=== PATIENT | female | born 1970 | race Caucasian/White ===

== ENCOUNTER 2021-11-11 01:00 | Emergency (ER) | payer OTHER ==
[~2021-11-11] VITALS: Ht 170.2 cm; Wt 65.8 kg
[2021-11-11 01:00] VITALS: BP_SYST 122
--- NOTE | 2021-11-11 01:12 | NUR ---
Patient triaged and placed in waiting room. VSS and patient appears in no acute distress at this time. Accompanied by SELF, awaiting available bed, and MD notified of need for MSE.
--- NOTE | 2021-11-11 02:41 | NUR ---
DR HOBBS OUT TO TRIAGE ROOM TO EVALUATE PT.
[2021-11-11] MEDS ORDERED: IBUP-1971 PO (03:09)
--- NOTE | 2021-11-11 03:29 | NUR ---
Patient given written and verbal discharge instructions and verbalizes understanding. ER MD discussed with patient the results and treatment provided. Patient in stable condition. ID arm band removed. Rx of ibuprofen given. Patient educated on pain management and to follow up with PMD. Opportunity for questions provided and answered. Medication side effect fact sheet provided.
[2021-11-11 03:35] VITALS: BP_SYST 122
== END 2021-11-11 03:29 | disposition home or self-care (01) ==
LOC: SED 01:00
DX: M25.571 Pain in right ankle and joints of right foot (principal)
CPT/HCPCS: 99283